=== PATIENT | male | born 1960 | race Caucasian/White ===

== ENCOUNTER 2019-07-22 12:40 | Outpatient (CLI) | payer BC ==
--- NOTE | 2019-07-23 11:11 | XRAY Report ---
Reason: NECK PAIN Procedure Date: 07/22/2019 Accession Number: [id number] / [id number] Procedure: XRN - Cervical Spine Complete CPT Code: Final Report FULL RESULT: EXAM: CERVICAL SPINE RADIOGRAPHY EXAM DATE: 07/22/2019 01:27 PM. CLINICAL HISTORY: Neck pain. COMPARISONS: None. TECHNIQUE: 5 views. FINDINGS: Alignment: Mild loss of the normal cervical lordosis. No spondylolisthesis. Bones: The cervical vertebral bodies and posterior elements are visualized from the skull base through C7-T1. No fractures or bone lesions. Disks: Moderate degenerative changes most notable between C5-C6 and C6-C7. Facet/Neural Foramina: Hypertrophic spurring with mild neural foraminal narrowing; at C3-C4 and C4-C5 (left) and C7-T1 (right). Soft Tissues: No prevertebral soft tissue swelling. The visualized lung apices are clear. IMPRESSION: Degenerative disk and facet disease. Mild neural foramina narrowing in the distribution noted above. Consider MRI if there are progressive radicular symptoms. [facility]
== END 2019-07-22 12:41 | disposition home or self-care (01) ==
LOC: DI.N 12:40
PROVIDERS: ATTEND Physician Assistant
DX: M50.322 Other cervical disc degeneration at C5-C6 level (principal); M47.812 Spondylosis without myelopathy or radiculopathy, cervical region
CPT/HCPCS: 72050